=== PATIENT | male | born 1965 | race American Indian/Alaskan Native ===

== ENCOUNTER 2018-07-04 10:20 | Outpatient (CLI) | payer OTHER ==
--- NOTE | 2018-07-04 12:10 | XRay Report ---
AP AND LATERAL LUMBOSACRAL SPINE: History: Low back pain, neuropathy Normal bone mineralization. Normal height and alignment of the lumbar vertebral bodies. No evidence for fracture, subluxation or bone lesion. Mild degenerative disc disease and facet arthropathy are identified at L4-5. Moderate degenerative disc disease and facet arthropathy are identified at L5-S1. IMPRESSION: Lumbar spondylosis as described. No acute process.
== END 2018-07-04 10:21 | disposition home or self-care (01) ==
LOC: XRAY 10:20
PROVIDERS: ATTEND Internal Medicine
DX: M47.896 Other spondylosis, lumbar region (principal)
CPT/HCPCS: 72100

== ENCOUNTER 2020-06-25 13:12 | Emergency (ER) | payer OTHER ==
[2020-06-25 13:56] VITALS: BP 160/94
[2020-06-25] MEDS ORDERED: LIDOCAINE (1%) 10 MG/1 ML VIAL 20 ML MDV INFILTRATI ONE (13:59)
[2020-06-25] MEDS ORDERED: NEOMY 3.5 MG/BACIT 400 UNITS/POLY B 5000 UNITS/GM OINT PACKET TP ONE (13:59)
[2020-06-25] MEDS ORDERED: ACETAMINOPHEN 325 MG TAB PO ONE (13:59)
[2020-06-25] MEDS ORDERED: DIPHtheria,PERTUSSIS(ACELL),TETANUS VACCINE/PF 0.5 ML VIAL IM ONE ×2 (13:59→17:07)
--- NOTE | 2020-06-25 13:59 | Event Note ---
ED Screening Note ED Screening Note: sp crushed finger in door needs tdap This initial assessment/diagnostic orders/clinical plan/treatment(s) is/are subject to change based on patients health status, clinical progression and re- assessment by fellow clinical providers in the ED. Further treatment and workup at subsequent clinical providers discretion. Patient/guardian urged not to elope from the ED as their condition may be serious if not clinically assessed and managed. Initial orders include: lac repair
--- NOTE | 2020-06-25 15:13 | XRay Report ---
RIGHT FINGERS 3 VIEWS INDICATION / CLINICAL INFORMATION: 5th digit smashed in door; pain. COMPARISON: None available. FINDINGS: Comminuted fracture of the tuft of the little finger with complete palmar displacement of the tuft fr om the remaining distal phalanx Signer Name: Abdi STOVALL Signed: 06/25/2020 3:09 PM Workstation Name: [id number]
[2020-06-25] MEDS ORDERED: ACETAMINOPHEN 325 MG TAB ONE (17:07)
[2020-06-25] MEDS ORDERED: oxyCODONE 5 MG TAB PO ONE (18:16)
[2020-06-25] MEDS ORDERED: LIDOCAINE-MPF (1%) 10 MG/1 ML VIAL 5 ML INFILTRATI ONE (18:21)
[2020-06-25] MEDS ORDERED: BUPIVACAINE/PF (0.5%) 5 MG/1 ML 10 ML VIAL INFILTRATI ONE (18:21)
--- NOTE | 2020-06-25 18:26 | Emergency Department Report ---
ED Upper Extremity Inj HPI - General Chief Complaint: Extremity Injury, Upper Stated Complaint: FINGER LAC Time Seen by Provider: 06/25/20 13:58 Source: patient Mode of arrival: Ambulatory Limitations: No Limitations - History of Present Illness Initial Comments: Patient is a 54-year-old male presents emergency room with complaints of a right pinky finger injury that occurred at 11:30 AM this morning. He states that he slammed his right pinky finger and got stuck in the car door. He denies any numbness or weakness. He is able to move the pinky. He denies ever injuring in the past. He is unsure of his last tetanus immunization. He is right-hand dominant. Past medical history of anxiety and PTSD. No allergies to medications. - Related Data Previous Rx's Medication Instructions Recorded Last Taken Type HYDROcodone/APAP 5-325 [[place] 1 each PO Q6HR PRN #12 tablet 06/25/20 Unknown Rx 5/325] cephALEXin [Keflex] 500 mg PO QID 7 Days #28 cap 06/25/20 Unknown Rx Allergies Allergy/AdvReac Type Severity Reaction Status Date / Time No Known Allergies Allergy Unverified 07/04/18 10:21 ED Review of Systems ROS: Stated complaint: FINGER LAC Other details as noted in HPI Comment: All other systems reviewed and negative ED Past Medical Hx - Social History Smoking Status: Never Smoker Substance Use Type: None - Medications Home Medications: Home Medications Medication Instructions Recorded Confirmed Last Taken Type HYDROcodone/APAP 5-325 [[place] 1 each PO Q6HR PRN #12 tablet 06/25/20 Unknown Rx 5/325] cephALEXin [Keflex] 500 mg PO QID 7 Days #28 cap 06/25/20 Unknown Rx ED Physical Exam - General Limitations: No Limitations General appearance: alert, in no apparent distress - Head Head exam: Present: atraumatic, normocephalic - Eye Eye exam: Present: normal appearance - ENT ENT exam: Present: mucous membranes moist - Extremities Exam Extremities exam: Present: other (2 cm deep laceration present to the dorsal surface of the right distal pinky, there is a small bone fragment present, small amount of bleeding noted, no obvious foreign body, pt does have FROM of the right pinky, neurovascularly intact) - Neurological Exam Neurological exam: Present: alert, oriented X3 - Psychiatric Psychiatric exam: Present: normal affect, normal mood - Skin Skin exam: Present: warm, dry ED Course Vital Signs 06/25/20 13:33 Temperature 98.6 F Pulse Rate 67 Respiratory 18 Rate Blood Pressure 160/94 O2 Sat by Pulse 98 Oximetry - Reevaluation(s) Reevaluation #1: 06/25/20 18:[address] Nina Linarse, ER attending who recommended Ancef, tet anus, washout, loose approximation of the skin, splint, referral to hand surgeon - Consultations Consultation #1: 06/25/20 18:[address] Springer, orthopedic who advised to loosely stitch but approximate the skin and have patient follow-up with orthopedics - Laceration /Wound Repair Right Distal Dorsal Finger Wound Location: upper extremity (dorsal surface of right distal pinky) Wound Length (cm): 2 Wound's Depth, Shape: irregular Wound Explored: no foreign body removed Irrigated w/ Saline (ccs): 500 Betadine Prep?: Yes Anesthesia: 1% Lidocaine Volume Anesthetic (ccs): 8 (0.5 cm bupivacaine) Wound Repaired With: sutures Suture Size/Type: 4:0, proline Number of Sutures: 2 Layer Closure?: No Sterile Dressing Applied?: Yes Progress: Wound thoroughly irrigated with saline and Betadine, used large syringe to washout finger, able to manipulate bone fragment back in place, digital block performed, a mixture of 1% lidocaine without epinephrine and 0.5% bupivacaine without epinephrine used, 8 cc placed to achieve local anesthesia, 4-0 Prolene used for skin closure, 2 running sutures placed with good skin approximation, patient tolerated well, no complications, bleeding controlled, Xeroform and sterile dressing applied, patient placed in's finger splint by nurse and remained neurovascularly intact ED Medical Decision Making - Radiology Data Radiology results: report reviewed cc: DANA LEO Fluoro Time In Minutes: RIGHT FINGERS 3 VIEWS INDICATION / CLINICAL INFORMATION: 5th digit smashed in door; pain. COMPARISON: None available. FINDINGS: Comminuted fracture of the tuft of the little finger with complete palmar displacement of the tuft from the remaining distal phalanx Signer Name: Abdi Morales MD FACR Signed: 06/25/2020 3:09 PM Workstation Name: [id number] Transcribed By: MS Dictated By: Abdi Morales MD Electronically Authenticated By: Abdi Morales MD Signed Date/Time: 06/25/20 1509 DD/ 1508 TD/TT: - Medical Decision Making Patient is a 54-year-old male presents emergency room with complaints of a right pinky finger injury that occurred at 11:30 AM this morning. He states that he slammed his right pinky finger and got stuck in the car door. He denies any numbness or weakness. He is able to move the pinky. He denies ever injuring in the past. He is unsure of his last tetanus immunization. He is right-hand dominant. Past medical history of anxiety and PTSD. No allergies to medications. vss. on exam: 2 cm deep laceration present to the dorsal surface of the right distal pinky, there is a small bone fragment present, small amount of bleeding noted, no obvious foreign body, pt does have FROM of the right pinky, neurovascularly intact. XR right finger: Comminuted fracture of the tuft of the little finger with complete palmar displacement of the tuft from the remaining distal phalanx. Patient given Tdap, pain medication, Ancef. Discussed case with Dr. Nina Linares, ER attending who recommended Ancef, tetanus, washout, loose approximation of the skin, splint, referral to hand surgeon, Spoke to Dr. Springer, orthopedic who advised to loosely stitch but approximate the skin and have patient follow-up with orthopedics. Wound approximated per procedure note. Patient placed in finger splint and remained neurovascularly intact. Patient given prescription for Keflex and Rimforest. Advised patient Please take medication as prescribed. Do not drive or operate heavy machinery while taking pain medication. Please leave finger in finger splint until you see the orthopedic. It is very important that you follow-up with orthopedic. Please take your x-ray report with you. Return to emergency room immediately for any new or worsening symptoms. - Differential Diagnosis strain, sprain, fx, dislocation, open fracture, laceration Critical care attestation.: If time is entered above; I have spent that time in minutes in the direct care of this critically ill patient, excluding procedure time. ED Disposition Clinical Impression: Open fracture of phalanx of right little finger Qualifiers: Encounter type: initial encounter Phalanx: distal Fracture alignment: displaced Qualified Code(s): S62.636B - Displaced fracture of distal phalanx of right little finger, initial encounter for open fracture Disposition: DC-01 TO HOME OR SELFCARE Is pt being admited?: No Does the pt Need Aspirin: No Condition: Stable Instructions: Finger Fracture (ED) Additional Instructions: Please take medication as prescribed. Do not drive or operate heavy machinery while taking pain medication. Please leave finger in finger splint until you see the orthopedic. It is very important that you follow-up with orthopedic. Please take your x-ray report with you. Return to emergency room immediately for any new or worsening symptoms. Prescriptions: cephALEXin [Keflex] 500 mg PO QID 7 Days #28 cap HYDROcodone/APAP 5-325 [Rimforest 5/325] 1 each PO Q6HR PRN #12 tablet PRN Reason: Pain , Severe (7-10) Referrals: KELLEY SPRINGER MD [Staff Physician] - 2-3 Days DANGELO KEE MD [Referring] - 2-3 Days Time of Disposition: 19:34 Print Language: PORTUGUESE
[2020-06-25] MEDS ORDERED: SODIUM CHLORIDE 0.9% IRR 500 ML BOTTLE IR ONE (18:28)
[2020-06-26] MEDS ORDERED: MAGNESIUM SULFATE 0 GM/0 ML BAG IV ONE (02:04)
== END 2020-06-25 19:45 | disposition home or self-care (01) ==
LOC: ED 13:12
DX: S62.636A Displaced fracture of distal phalanx of right little finger, initial encounter for closed fracture (principal); W23.1XXA Caught, crushed, jammed, or pinched between stationary objects, initial encounter; Y93.89 Activity, other specified; Y92.89 Other specified places as the place of occurrence of the external cause; Y99.8 Other external cause status
CPT/HCPCS: 12001; 73140; 90471; 90715; 96365; 96366; 99283; J0690; J3475

== ENCOUNTER 2020-06-26 11:07 | Emergency (ER) | payer OTHER ==
[2020-06-26 11:13] VITALS: BP 141/93
--- NOTE | 2020-06-26 12:10 | Emergency Department Report ---
ED General Adult HPI - General Chief complaint: Wound/Laceration Stated complaint: finger numb Time Seen by Provider: 06/26/20 11:48 Source: patient Mode of arrival: Ambulatory Limitations: No Limitations - History of Present Illness Initial comments: 54-year-old -Greek male patient presents with complaints of numbness and tightness of his wound dressing to his right little finger x today. Patient was seen here yesterday in the ED for an open fracture of the right fifth digit. Patient was given a dose of Ancef and placed in a metal finger splint and informed to follow-up with Dr. Springer today. Patient states he has not filled his prescription for his antibiotics and has not called Dr. Springer to make an appointment. He denies any worsening pain, fever, redness or increased swelling. Patient states he was concerned because the tip of his finger is numb. Severity scale (0 -10): 0 - Related Data Previous Rx's Medication Instructions Recorded Last Taken Type HYDROcodone/APAP 5-325 [[place] 1 each PO Q6HR PRN #12 tablet 06/25/20 Unknown Rx 5/325] cephALEXin [Keflex] 500 mg PO QID 7 Days #28 cap 06/25/20 Unknown Rx Allergies Allergy/AdvReac Type Severity Reaction Status Date / Time No Known Allergies Allergy Verified 06/26/20 11:08 ED Review of Systems ROS: Stated complaint: finger numb Other details as noted in HPI Constitutional: denies: chills, fever, malaise, weakness Gastrointestinal: denies: nausea, vomiting Neurological: numbness. denies: weakness ED Past Medical Hx - Past Medical History Previous Medical History?: No - Surgical History Past Surgical History?: No - Social History Smoking Status: Never Smoker Substance Use Type: Alcohol - Medications Home Medications: Home Medications Medication Instructions Recorded Confirmed Last Taken Type HYDROcodone/APAP 5-325 [[place] 1 each PO Q6HR PRN #12 tablet 06/25/20 Unknown Rx 5/325] cephALEXin [Keflex] 500 mg PO QID 7 Days #28 cap 06/25/20 Unknown Rx ED Physical Exam - General Limitations: No Limitations General appearance: alert, in no apparent distress - Head Head exam: Present: atraumatic, normocephalic - Eye Eye exam: Present: normal appearance. Absent: scleral icterus - Respiratory Respiratory exam: Absent: respiratory distress - Cardiovascular Cardiovascular Exam: Present: regular rate - Extremities Exam Extremities exam: Present: other (Dressing noted in place to right little finger. Dressing was removed. No erythema, purulent drainage, warmth, or significant swelling noted to digit. Patient has full range of motion of the right little finger. Sutures are noted to be in place. No swelling to the hand or decreased range of motion noted of the hand.) ED Course Vital Signs 06/26/20 11:12 Temperature 97 F L Pulse Rate 61 Respiratory 18 Rate Blood Pressure 141/93 [Right] O2 Sat by Pulse 100 Oximetry ED Medical Decision Making - Medical Decision Making Patient here for wound recheck due to numbness at the tip of his finger and tightness of his dressing. Patient did not have his splint on and states it fell off last night. He states he has not filled his antibiotics or followed up with Dr. Springer as instructed. Discussed the importance of starting antibiotics and patient also informed to call Dr. Springer's office immediately for further evaluation and treatment of his open fracture. No signs of infection or compartment syndrome noted on exam. Patient was placed in a new sterile dressing and metal finger splint. His vitals are normal, he is well- appearing, and stable for discharge home. Strict return precautions were discussed in great detail with patient who verbalized understanding. Critical care attestation.: If time is entered above; I have spent that time in minutes in the direct care of this critically ill patient, excluding procedure time. ED Disposition Clinical Impression: Visit for wound check Disposition: DC-01 TO HOME OR SELFCARE Is pt being admited?: No Condition: Stable Instructions: Suture Care (ED), Acute Wound Care (ED) Referrals: KELLEY SPRINGER MD [Staff Physician] - 3-5 Days
== END 2020-06-26 12:06 | disposition home or self-care (01) ==
LOC: ED 11:07
DX: Z48.00 Encounter for change or removal of nonsurgical wound dressing (principal); Z79.899 Other long term (current) drug therapy